=== PATIENT | female | born 1945 | race Caucasian/White ===

== ENCOUNTER → 2024-06-13 | Outpatient (CLI) | payer MEDICARE ==
[~2024-06-13] MED LIST: AMLO-258 PO; CARV6.25 PO; FURO20TA6 PO; IOHEXOL-350 75 ML VIAL IV ONE; ISOS60TA77 PO; LEVO125T95 PO; MELO-108 PO; METF-444 PO; SIMV-344 PO
== END | disposition home or self-care (01) ==
LOC: RAH 12:54
PROVIDERS: ATTEND Internal Medicine
DX: G31.9 Degenerative disease of nervous system, unspecified (principal); G45.9 Transient cerebral ischemic attack, unspecified
CPT/HCPCS: 70450; Q9967